=== PATIENT | male | born 1960 | race Hispanic/Latino ===

== ENCOUNTER 2022-07-15 09:22 | Emergency (ER) | payer OTHER ==
[~2022-07-15] VITALS: Ht 170.2 cm; Wt 100.2 kg
[2022-07-15 10:03] LABS: BASOPHILS % (AUTO) 0.2 % (0.0-5.0); EOSINOPHILS % (AUTO) 1.7 % (0.0-8.0); HEMATOCRIT 41.8 % (42-54); LYMPHOCYTES % (AUTO) 20.8 % (21.0-51.0); MEAN CORPUSCULAR HEMOGLOBIN 28.5 pg (27.0-33.0); MEAN CORPUSCULAR HGB CONC 33.7 g/dL (32.0-36.0); MEAN CORPUSCULAR VOLUME 84.6 fL (79-99); NEUTROPHILS % (AUTO) 71.9 % (40.0-77.0); PLATELET COUNT (AUTO) 254 K/uL (130-400); RED BLOOD CELL COUNT(AUTO) 4.94 MIL/uL (4.50-6.20); RED CELL DISTRIBUTION WIDTH 12.2 % (11.0-15.5); WHITE BLOOD COUNT (AUTO) 8.2 K/uL (4.8-10.8)
[2022-07-15 10:09] LABS: APPEARANCE,URINE CLEAR (CLEAR); BILIRUBIN,URINE NEGATIVE (NEGATIVE); COLOR,URINE LIGHT-YELLOW (YELLOW); GLUCOSE, URINE (UA) NEGATIVE (NEGATIVE); KETONES,URINE NEGATIVE (NEGATIVE); LEUKOCYTE ESTERASE ,URINE NEGATIVE Leu/uL (NEGATIVE); NITRATE,URINE NEGATIVE (NEGATIVE); OCCULT BLOOD,URINE NEGATIVE (NEGATIVE); PROTEIN,URINE NEGATIVE (NEGATIVE); UROBILINOGEN,URINE 0.2 mg/dL (0.2-1.0)
[2022-07-15 10:12] LABS: CREATININE 1.1 mg/dL (0.5-1.5); POTASSIUM 3.7 mmol/L (3.5-5.1)
[2022-07-15 10:17] LABS: MAGNESIUM 1.9 mg/dL (1.80-2.40); TOTAL PROTEIN, SERUM 7.5 g/dL (6.0-8.3)
[2022-07-15 10:22] VITALS: BP 115/73
[2022-07-15] MEDS ORDERED: DEXAMETHASONE SOD PHOSPHATE 4 MG/ML 1ML VIAL IVP ONE (11:00)
[2022-07-15] MEDS ORDERED: MECLIZINE HCL 25 MG TABLET PO ONE (11:00)
[2022-07-15] MEDS ORDERED: 0.9%NACL 1000ML 1,000 ML IV ONE (11:00)
[2022-07-15] MEDS ORDERED: MECL-160 PO (12:23)
== END 2022-07-15 12:47 | disposition home or self-care (01) ==
LOC: EDH 09:22
DX: H81.10 Benign paroxysmal vertigo, unspecified ear (principal); E86.0 Dehydration; I10 Essential (primary) hypertension; Z88.6 Allergy status to analgesic agent
CPT/HCPCS: 99285; 96374; 71045; 96361; 83735; 80053; 85025; 81003; 36415; 93005; J1100; J7030

== ENCOUNTER 2024-09-17 07:10 | Emergency (ER) | payer SELFPAY ==
[~2024-09-17] VITALS: Ht 170.2 cm; Wt 104.3 kg
[~2024-09-17 07:10] MED LIST: MECL-302 PO
--- NOTE | 2024-09-17 07:27 | NUR ---
BLADDER SCAN >500CC
[2024-09-17] MEDS ORDERED: TAMS-1 PO (07:51)
--- NOTE | 2024-09-17 07:51 | ERN ---
General Chief Complaint: Urinary Retention Stated Complaint: URINARY RETENTION Time Seen by MD: 07:14 History of Present Illness Initial Comments 3-year-old male presents for urinary retention beginning approximately 9 hours prior to arrival. Last urination was 10:00 p.m. on 09/16/2024. Reports suprapubic distention in the feeling of needing to urinate. He denies any complications with his prostate. He reports that he usually urinates 2 times per night. Yesterday he took in [place] 0 to see if that would help him urinate. He denies any fevers, flank pain, suprapubic pain, dysuria, hematuria. Denies any headache or vision changes. He does report that he recently took [id number] cough and cold medications. Denies any other medication use other than his normal blood pressure medicines and diuretics. Medical history: Hypertension Allergies: Coded Allergies: aspirin (Unverified Allergy, Unknown, 07/15/22) Home Meds Active Scripts Tamsulosin HCl (Flomax) 0.4 Mg Cap.er.24h, 1 CAP PO DAILY for 30 Days, #30 CAP 0 Refills Prov:JOSSELIN PIERRE DO 09/17/24 Meclizine HCl (Meclizine HCl) 25 Mg Tablet, 25 MG PO TID PRN for VERTIGO, #15 TAB 0 Refills Prov:CHAGO PAREDES MD 07/15/22 Past Medical History Past Medical History: Hypertension Past Surgical History: Other ROS Dictation CONSTITUTIONAL: No chills, no fever, no weakness, no diaphoresis, no malaise. HEAD/FACE: No signs of trauma. EENT: No eye pain, no blurred vision, no tearing, no double vision, no ear pain, no ear discharge, no nose pain, no nasal congestion, no throat pain, no throat swelling, no mouth pain. RESPIRATORY: No cough, no orthopnea, no SOB, no stridor, no wheezing. CARDIOVASCULAR: No chest pain, no edema, no palpitations, no syncope. GASTROINTESTINAL/ABDOMINAL: No abdominal pain, no constipation, no diarrhea, no nausea, no vomiting. GENITOURINARY: URIINARY RETENTION No abnormal discharge, no dysuria, no frequent urination, no hematuria. No complaints of pain in the genitals. MUSCULOSKELETAL: No back pain, no gout, no joint pain, no joint swelling, no muscle pain, no muscle stiffness, no neck pain. INTEGUMENTARY: No change in color, no change in hair/nails, no dryness, no lesion, no lumps, no rash. NEUROLOGICAL/PSYCH: No anxiety, not depressed, no emotional problem, no headach e, no numbness, no pre-existing deficit, no history of seizures, no tremors, no weakness. HEMATOLOGIC/LYMPHATIC: Not anemic, no history of blood clots, no apparent bleeding, no bruising, glands not swollen. All Systems Negative, Except as Noted. Physical Exam Physical Exam Dictation VITAL SIGNS: Reviewed. GENERAL APPEARANCE: Alert, oriented x3, mild distress due to urinary retention HEAD AND FACE: Non-traumatic. EYES: PERRL, pink conjunctivas, eyelid no trauma, anterior chamber clear. EARS: Pinnas intact and no signs of trauma or erythema. Ear canals clear and no discharge. TMs no erythema. NOSE: No discharge, no bleeding. OROPHARYNX: Mouth normal, teeth no caries, tongue pink. Pharynx clear, no erythema. Tonsils no exudates, no abscesses noted. Mucous membrane moist. NECK: Supple, non-tender, no thyromegaly, no masses, no JVD, no bruits. BREAST: Deferred. CHEST: No tenderness, no crepitus, no paradoxical movement, no retractions. LUNGS: Clear, well-ventilated, symmetric, no rales, no wheezing, no rhonchi, no stridor, good breath sounds bilaterally. HEART: Regular rate, regular rhythm, no murmur, no gallops. VASCULAR: No peripheral edema. ABDOMEN: Soft, positive bowel sounds, mildly distended suprapubic area RECTAL: Deferred. GENITAL: Deferred. NEUROLOGICAL: Normal speech, gross motor function intact, gross sensory functio n intact. MUSCULOSKELETAL: Neck nontender, full range of motion, back nontender, full range of motion. EXTREMITIES: Nontender, full range of motion. SKIN: Color pink, dry, no turgor, no rash, no lacerations, no abrasions, no contusions. LYMPHATICS: Deferred. Results Laboratory and Microbiology Lab and Micro Result Laboratory Tests Test 09/17/24 07:25 Urine Color DARK-YELLOW (YELLOW) Urine Appearance CLEAR (CLEAR) Urine pH 5.5 (5.0-8.0) Urine Specific [place] 1.029 (1.001-1.031) Urine Protein NEGATIVE mg/dL (NEGATIVE) Urine Glucose (UA) >=1000 mg/dL (NEGATIVE) H Urine Ketones NEGATIVE mg/dL (NEGATIVE) Urine Occult Blood LARGE (NEGATIVE) H Urine Nitrate NEGATIVE (NEGATIVE) Urine Bilirubin NEGATIVE mg/dL (NEGATIVE) Urine Urobilinogen 0.2 mg/dL (0.2-1.0) Urine Leukocyte Esterase NEGATIVE Leo/uL Urine RBC TNTC /HPF (0-1) H Urine WBC 2-5 /HPF (0-1) H Urine Squamous Epithelial Cells RARE /HPF (0-2) Urine Bacteria RARE /HPF (None Seen) MDM CC: For urinary retention Historian: Patient Comorbidities: Hypertension Limitations by social determinants of health: None Differential diagnosis: UTI, BPH, neurologic retention, medication retention Vital signs: Stable Patient came in and moderate to severe distress due to urinary retention. A March was placed without complication by the RN. Patient drained about 800 mL of orange urine. Urinalysis shows blood and glucose otherwise unremarkable. Unclear of the cause. We will recommend that the patient keeps in the March and follows up as an outpatient. We will start tamsulosin and antibiotics. ED Course Orders Procedure Category Date Status Time Nurse Driven March TARA 09/17/24 In Process Removal Pro 07:23 Urinalysis Profile LAB 09/17/24 Complete 07:26 Vital Signs Date Time Temp Pulse Resp B/P (MAP) Pulse Ox O2 Delivery O2 Flow Rate FiO2 09/17/24 07:20 97.9 104 20 155/109 99 Room Air 0 DX & DISP Disposition: Discharge Departure Impression: Primary Impression: Urinary retention Condition: Stable Scripts Meloxicam (Meloxicam) 15 Mg Tablet 1 TAB PO DAILY for 10 Days, #10 TAB 0 Refills Prov: JOSSELIN PIERRE DO 09/17/24 Cefpodoxime Proxetil (Cefpodoxime Proxetil) 200 Mg Tablet 200 MG PO BID for 10 Days, #20 TAB Prov: JOSSELIN PIERRE DO 09/17/24 Tamsulosin HCl (Flomax) 0.4 Mg Cap.er.24h 1 CAP PO DAILY for 30 Days, #30 CAP 0 Refills Prov: JOSSELIN PIERRE DO 09/17/24 Additional Instructions: You have urinary retention. As we discussed, there are many causes of urinary retention. You will need to follow up with your primary doctor or a urologist. I have prescribed cefpodoxime, which is an antibiotic. Take the entire course of antibiotics. I have prescribed tamsulosin. This may help if your prostate is causing the problem. Take this nightly for the next month. I have prescribed meloxicam, which is an anti-inflammatory medication. Please take this for the next 10 days. As we discussed, please return to the emergency department if you have any concerns. Otherwise follow up as an outpatient in 1-2 weeks for March removal and further evaluation. Referrals: NONE (PCP) JOSSELIN PIERRE DO Sep 17, 2024 07:51
[2024-09-17 08:10] LABS: APPEARANCE,URINE CLEAR (CLEAR); BILIRUBIN,URINE NEGATIVE (NEGATIVE); COLOR,URINE DARK-YELLOW (YELLOW); GLUCOSE, URINE (UA) >=1000 mg/dL (NEGATIVE); KETONES,URINE NEGATIVE (NEGATIVE); LEUKOCYTE ESTERASE ,URINE NEGATIVE Leu/uL (NEGATIVE); NITRATE,URINE NEGATIVE (NEGATIVE); OCCULT BLOOD,URINE LARGE (NEGATIVE); PH,URINE 5.5 (5.0-8.0); PROTEIN,URINE NEGATIVE (NEGATIVE); UROBILINOGEN,URINE 0.2 mg/dL (0.2-1.0)
[2024-09-17 08:11] LABS: ADD UA MICROSCOPIC YES
[2024-09-17 08:12] LABS: BACTERIA,URINE RARE /HPF (None Seen); MUCUS,URINE RARE LPF (None Seen); RBC,URINE TNTC /HPF (0-1); SQUAMOUS EPITHELIAL CELL,UR RARE /HPF (0-2)
[2024-09-17] MEDS ORDERED: CEFP200T14 PO (08:16)
[2024-09-17] MEDS ORDERED: MELO-108 PO (08:16)
[2024-09-17 09:09] VITALS: BP 121/69; PULSE 76; RESP 16; TEMP 97.8; O2SAT 97
--- NOTE | 2024-09-17 09:15 | NUR ---
GUO BAG CONVERTED TO LEG BAG, PT INSTRUCTED ON USE AND VERBALIZED FULL UNDERSTANDING
[2024-09-20] MEDS ORDERED: PHEN-847 PO (17:20)
[2024-09-20] MEDS ORDERED: AMOX1TAB16 PO (17:20)
== END 2024-09-17 09:25 | disposition home or self-care (01) ==
LOC: EDH 07:10
DX: R33.9 Retention of urine, unspecified (principal); I10 Essential (primary) hypertension; Z88.6 Allergy status to analgesic agent; Z79.899 Other long term (current) drug therapy; Z98.890 Other specified postprocedural states
CPT/HCPCS: 51702; 81001; 99284

== ENCOUNTER 2024-11-08 10:01 | Emergency (ER) | payer SELFPAY ==
[~2024-11-08] VITALS: Ht 170.2 cm; Wt 99.8 kg
[~2024-11-08 10:01] MED LIST changes: +AMOX1TAB16 PO; +CEFP200T14 PO; +MELO-108 PO; +PHEN-847 PO; +TAMS-1 PO
[2024-11-08 10:35] LABS: HEMATOCRIT 43.7 % (42-54); MEAN CORPUSCULAR HGB CONC 33.6 g/dL (32.0-36.0); MEAN CORPUSCULAR VOLUME 86.2 fL (79-99); RED BLOOD CELL COUNT(AUTO) 5.07 MIL/uL (4.50-6.20); RED CELL DISTRIBUTION WIDTH 11.9 % (11.0-15.5); WHITE BLOOD COUNT (AUTO) 8.8 K/uL (4.8-10.8)
[2024-11-08 10:37] LABS: APPEARANCE,URINE CLEAR (CLEAR); BILIRUBIN,URINE NEGATIVE (NEGATIVE); COLOR,URINE LIGHT-YELLOW (YELLOW); GLUCOSE, URINE (UA) NEGATIVE (NEGATIVE); KETONES,URINE NEGATIVE (NEGATIVE); LEUKOCYTE ESTERASE ,URINE NEGATIVE Leu/uL (NEGATIVE); NITRATE,URINE NEGATIVE (NEGATIVE); OCCULT BLOOD,URINE NEGATIVE (NEGATIVE); PROTEIN,URINE NEGATIVE (NEGATIVE); UROBILINOGEN,URINE 0.2 mg/dL (0.2-1.0)
[2024-11-08 10:45] LABS: CREATININE 1.1 mg/dL (0.5-1.3)
[2024-11-08 10:51] LABS: BILIRUBIN,DIRECT 0.1 mg/dL (0.0-0.3); BILIRUBIN,TOTAL 0.6 mg/dL (0.2-1.0); TOTAL PROTEIN, SERUM 7.8 g/dL (6.0-8.3)
[2024-11-08 10:57] LABS: ADD UA MICROSCOPIC NO
--- NOTE | 2024-11-08 11:15 | ERN ---
ED Note History of Present Illness Stated Complaint: ABDOMINAL PAIN Chief Complaint: Abdominal Pain Time Seen by MD: 11:04 Dictation: PATIENT IS A 64-YEAR-OLD MALE THAT LIVES IN [facility] COMING IN TODAY WITH COMPLAINTS OF HAVING SUPRAPUBIC TENDERNESS AND NOT FEELING GOOD. HE STATES HE HE COMES AND GOES BETWEEN HERE AND [facility] TO SEE HIS GRANDSON IN [facility]. STATES [place] TIME [place] [facility] [place] GUO CATHETER PLACED AND THEN WHEN HE WENT BACK HOME TO [place] IT WAS REMOVED BY HIS PRIMARY CARE DOCTOR. HE WAS SENT TO A UROLOGIST IN [facility], WAS TOLD HIS PSA WAS 10 HOWEVER WHO HAS PROSTATE WAS NORMAL. HE STATES HE DROVE BACK DOWN TO [place] TODAY AND STATES HE DOES NOT FEEL GOOD AND THAT HE IS HAVING SOME SUPRAPUBIC PAIN. STATES HE JUST WENT TO THE [facility] AND EMPTIED HIS BLADDER. Allergies: Coded Allergies: aspirin (Unverified Allergy, Unknown, 07/15/22) Home Meds Active Scripts Ciprofloxacin HCl (Cipro) 500 Mg Tablet, 1 TAB PO BID for 10 Days, #20 TAB 0 Refills Prov:MORA FAJARDO NP 11/08/24 Phenazopyridine HCl (Pyridium) 200 Mg Tab, 200 MG PO TIDPC for 3 Days, #9 TAB TAKE WITH FOOD TO PREVENT STOMACH UPSET. Prov:MORA FAJARDO NP 09/20/24 Amoxicillin/Potassium Clav (Amox Tr-K Clv 875-125 mg Tab) 875 Mg-125 Mg Tablet, 1 EACH PO BID for 7 Days, #14 TAB 0 Refills Prov:MORA FAJARDO NP 09/20/24 Meloxicam (Meloxicam) 15 Mg Tablet, 1 TAB PO DAILY for 10 Days, #10 TAB 0 Refills Prov:JOSSELIN PIERRE DO 09/17/24 Cefpodoxime Proxetil (Cefpodoxime Proxetil) 200 Mg Tablet, 200 MG PO BID for 10 Days, #20 TAB Prov:JOSSELIN PIERRE DO 09/17/24 Tamsulosin HCl (Flomax) 0.4 Mg Cap.er.24h, 1 CAP PO DAILY for 30 Days, #30 CAP 0 Refills Prov:JOSSELIN PIERRE DO 09/17/24 Meclizine HCl (Meclizine HCl) 25 Mg Tablet, 25 MG PO TID PRN for VERTIGO, #15 TAB 0 Refills Prov:CHAGO PAREDES MD 07/15/22 Past Medical History Past Medical History: Hypertension Surgical History: None RN Note Reviewed/Agreed w/PFSH: Yes Review of System Dictation CONSTITUTIONAL: Negative except for HPI HEAD/FACE: Negative except for HPI EENT: Negative except for HPI RESPIRATORY: Negative except for HPI GASTROINTESTINAL/ABDOMINAL: Negative except for HPI GENITOURINARY: Negative except for HPI mild suprapubic tenderness MUSCULOSKELETAL: Negative except for HPI INTEGUMENTARY: Negative except for HPI NEUROLOGICAL/PSYCH: Negative except for HPI HEMATOLOGIC/LYMPHATIC: Negative except for HPI All Systems Negative, Except as noted above. 13 point review of systems assessed and all negative except for above. Initial Vital Sign VS Vital Signs Date Time Temp Pulse Resp B/P (MAP) Pulse Ox O2 Delivery O2 Flow Rate FiO2 11/08/24 10:02 97.7 86 18 129/75 98 Room Air 11/08/24 11:41 0 21 Physical Exam Dictation Vital Signs reviewed General Appearance: Alert, oriented x 3, no acute distress, well developed, nourished. Head and Face: non-traumatic. Eyes: PERRL, pink conjunctivas, eyelid no trauma, anterior chamber with arcus senilis. Ears: Pinnas intact and no signs of trauma or erythema ear canals clear and no discharge TM no erythema Nose: No discharge, no bleeding. Oropharynx: Mouth normal, tongue pink, pharynx clear,no erythema, tonsils no exudates, no abscesses noted, mucous membrane moist Neck: Supple, non-tender, no thyromegaly, no masses, no JVD, no bruits Breast:Deferred Chest:No tenderness, no crepitus, no paradoxical movement, no retractions Lungs:Clear, well-ventilated, symmetric, no rales, no wheezing, no rhonchi, no stridor, good breath sounds bilaterally Heart: Regular rate, regular rhythm, no murmur, no gallops Vascular: no peripheral edema, Abdomen: Soft, positive bowel sounds, nondistended, no guarding, nontender, no rebound, no masses no hepatomegaly, no splenomegaly, no Whitmore's sign, no hernias. Mild suprapubic tenderness Rectal: Deferred Genital: Deferred Neurological: Normal speech, motor function intact, sensory function intact Musculoskeletal: Neck nontender, full range of motion, back nontender, full range of motion, Extremities: nontender, full range of motion Skin: Color pink, dry, no turgor, no rash, no lacerations, no abrasions, no contusions. Lymphatic: Deferred Results (Laboratory/Radiology) Laboratory/Radiology Laboratory Tests Test 11/08/24 10:20 11/08/24 10:26 Urine Color LIGHT-YELLOW (YELLOW) Urine Appearance CLEAR (CLEAR) Urine pH 6.0 (5.0-8.0) Urine Specific [place] 1.017 (1.001-1.031) Urine Protein NEGATIVE mg/dL (NEGATIVE) Urine Glucose (UA) NEGATIVE mg/dL (NEGATIVE) Urine Ketones NEGATIVE mg/dL (NEGATIVE) Urine Occult Blood NEGATIVE (NEGATIVE) Urine Nitrate NEGATIVE (NEGATIVE) Urine Bilirubin NEGATIVE mg/dL (NEGATIVE) Urine Urobilinogen 0.2 mg/dL (0.2-1.0) Urine Leukocyte Esterase NEGATIVE Leo/uL White Blood Count 8.8 K/uL (4.8-10.8) Red Blood Count 5.07 MIL/uL (4.50-6.20) Hemoglobin 14.7 g/dL (14.0-18.0) Hematocrit 43.7 % (42-54) Mean Corpuscular Volume 86.2 fL (79-99) Mean Corpuscular Hemoglobin 29.0 pg (27.0-33.0) Mean Corpuscular Hemoglobin Concent 33.6 g/dL (32.0-36.0) Red Cell Distribution Width 11.9 % (11.0-15.5) Platelet Count 274 K/uL (130-400) Mean Platelet Volume 10.2 fL (7.5-10.5) Nucleated Red Blood Cells 0.0 % (0.0-0.19) Sodium Level 139 mmol/L (136-145) Potassium Level 3.0 mmol/L (3.5-5.1) *L Chloride Level 101 mmol/L (101-111) Carbon Dioxide Level 31 mmol/L (21-32) Blood Urea Nitrogen 16 mg/dL (7-18) Creatinine 1.1 mg/dL (0.5-1.3) Glomerular Filtration Rate Calc 75 mL/min (>90) Random Glucose 155 mg/dL (70-105) H Lactic Acid Level 2.4 mmol/L (0.8-2.5) Total Calcium 9.7 mg/dL (8.5-10.1) Total Bilirubin 0.6 mg/dL (0.2-1.0) Direct Bilirubin 0.1 mg/dL (0.0-0.3) Aspartate Amino Transf (AST/SGOT) 21 U/L (10-37) Alanine Aminotransferase (ALT/SGPT) 48 U/L (12-78) Alkaline Phosphatase 80 U/L (50-136) Total Protein 7.8 g/dL (6.0-8.3) Albumin 4.0 g/dL (3.5-5.0) Lipase 44 U/L (16-77) CT ABDOMEN/PELVIS W/CONTRAST HISTORY: Lower abdominal pain COMPARISON: None TECHNIQUE: Multiple sequential axial images of the abdomen and pelvis were obtained from the dome of the diaphragm through symphysis pubis. Patient was given 75 cc of Omnipaque through intravenous route. Oral contrast was not given. FINDINGS: No pleural effusion is seen bilaterally. There is no evidence of parenchymal disease or pulmonary nodule of the visualized lower lungs. Degenerative changes of the thoracolumbar spine are present. The heart is not enlarged. Gallstones are seen in the gallbladder. Liver is enlarged measuring 18 cm. The liver, spleen, adrenal glands and pancreas are unremarkable. There is no evidence of hydronephrosis bilaterally. There are multiple left renal cysts with the largest measuring 4 cm. No evidence of renal stone is seen. Fecal material is seen in the colon. There are normal size retroperitoneal and mesenteric lymph nodes. No ascites is seen. Atherosclerotic changes are present. Pelvic sidewalls are symmetric bilaterally. Bladder is poorly distended with bladder stone. Bladder wall measures 13 mm. Prostate gland is enlarged measuring 7.2 x 7.8 cm. IMPRESSION: 1. Diverticulosis. Fecal material in the colon. Gallstones in the gallbladder. Left renal cysts. Enlarged prostate. Labs Reviewed?: Yes ED Course ED Course Orders Procedure Category Date Status Time Cbc Without LAB 11/08/24 Complete Differential 10:14 Basic Metabolic Panel LAB 11/08/24 Complete 10:14 Urinalysis Profile LAB 11/08/24 Complete 10:14 Hepatic Function Panel LAB 11/08/24 Complete 10:19 Lipase LAB 11/08/24 Complete 10:19 Lactic Acid LAB 11/08/24 Complete 10:19 Ct Abdomen/Pelvis CT 11/08/24 Resulted W/Contrast 10:19 Potassium Bicarb/Cit PHA 11/08/24 Complete Ac 25meq (K-Lyte Ta 11:30 Bladder Scan CPOE 11/08/24 Transmitted 11:31 Iohexol (Omnipaque) PHA 11/08/24 Complete 12:01 Ketorolac 60mg/2ml PHA 11/08/24 Complete (Toradol 60mg/2ml) 13:00 Current Medications Medications (Trade) Dose Ordered Sig/Deuce Route PRN Reason Start Time Stop Time Status Last Admin Dose Admin Iohexol (Omnipaque) 75 ml STK-MED ONCE IV 11/08/24 12:01 11/08/24 12:02 DC Ketorolac Tromethamine (toRADol 60MG/ 2ML) 60 mg ONCE ONCE IM 11/08/24 13:00 11/08/24 13:01 DC 11/08/24 12:57 Potassium Bicarbonate (K-Lyte Tablet Eff 25 Meq Tablet.eff) 25 meq ONCE ONCE PO 11/08/24 11:30 11/08/24 11:31 DC 11/08/24 12:38 Vital Signs Date Time Temp Pulse Resp B/P (MAP) Pulse Ox O2 Delivery O2 Flow Rate FiO2 11/08/24 12:52 98.2 76 16 118/75 98 Room Air* 0 21 11/08/24 11:41 98.2 79 16 120/75 100 Room Air* 0 21 11/08/24 10:02 97.7 86 18 129/75 98 Room Air 1200/patient had spontaneous void of 200 cc. Postvoid residual 49 cc 235 PATIENT WE WILL BE DISCHARGED HOME WITH BENIGN PROSTATE HYPERTROPHY. HE IS ALREADY ON TAMSULOSIN. NO INFECTIONS AT THIS TIME PATIENT HAS LACTIC ACID OF 2.4 HOWEVER LABS ARE COMPLETELY NORMAL HE HAS NO LEUKOCYTOSIS AND HEMODYNAM ICALLY STABLE AFEBRILE. PATIENT WILL BE TOLD TO FOLLOW UP WITH HIS DOCTOR IN [facility] IN THE NEXT 1-2 DAYS AND CONTINUE ALL MEDICATIONS. Medical Decision Making MDM MDM: DIFFERENTIAL DIAGNOSIS: APPENDICITIS/DIVERTICULITIS/UTI/PROSTATITIS/ELECTROLYTE IMBALANCE/DEHYDRATION/URINARY RETENTION RATIONALE: TESTS CONSIDERED AND ORDERED SECONDARY TO SHARED DECISION MAKING INCLUDE: LABS/RADIOLOGY PREVIOUS OUTSIDE RECORDS REVIEWED: OLD ER VISITS. RISK OF COMPLICATION AND/OR MORBIDITY OR MORTALITY OF PATIENT MANAGEMENT: NONE MEDICATIONS-PER MEDICATION RECONCILIATION NEED FOR HOSPITALIZATION: PATIENT DOES NOT MEET CRITERIA FOR HOSPITALIZATION. NO NEED FOR EMERGENCY MAJOR/MINOR SURGERY: NO THERE ARE NO SOCIAL CONCERNS WITH THIS PATIENT. PRESCRIPTION DRUG MANAGEMENT CIPRO PRESCRIPTIONS WILL INCLUDE SYMPTOMATIC CARE PATIENT'S PRIOR EXTERNAL MEDICAL RECORDS FROM OTHER ER VISITS WERE REVIEWED BY ME INDICATED. PRIOR TESTING AND RESULTS FROM PREVIOUS VISITS WERE REVIEWED. PRIOR TESTS WERE TAKEN INTO ACCOUNT WITH MEDICAL DECISION MAKING AND RESOURCE UTILIZATION, INDEPENDENT HISTORIAN/HISTORIANS WERE USED TO OBTAIN COMPLETE MEDICAL HISTORY. I INDEPENDENTLY INTERPRETED THE TEST THAT WERE PERFORMED, RESULTS WERE REVIEWED BY ME AND CONSIDERED FINDINGS ON RADIOLOGY IF ORDERED. MEDICAL MANAGEMENT AND EXAMINATION INTERPRETATION DISCUSSIONS WERE HAD BY ME WITH OTHER QUALIFIED HEALTHCARE PROFESSIONALS INDICATED FOR THE PATIENT'S CARE. DX & DISP Disposition: Discharge Departure Impression: Primary Impression: BPH without obstruction/lower urinary tract symptoms Additional Impressions: Constipation, Hypokalemia Condition: Stable Scripts Ciprofloxacin HCl (Cipro) 500 Mg Tablet 1 TAB PO BID for 10 Days, #20 TAB 0 Refills Prov: MORA FAJARDO PRODUCT ASSURANCE ENGINEER 11/08/24 Additional Instructions: FOLLOW-UP WITH PRIMARY CARE PROVIDER IN 1 TO 2 DAYS. TAKE MEDICATIONS DIRECTED HERE IN THE EMERGENCY ROOM. OKAY TO CONTINUE HOME MEDICATIONS UNLESS OTHERWISE DISCUSSED DURING YOUR VISIT IN THE EMERGENCY ROOM TODAY. RETURN TO YOUR NEAREST EMERGENCY ROOM IF SYMPTOMS WORSEN OR IF THERE IS NO IMPROVEMENT. CALL 911 IF YOU NEED IMMEDIATE ASSISTANCE. TAKE TYLENOL OR MOTRIN [id number] NEEDED AND IF NO CONTRAINDICATIONS ARE PRESENT. INCREASE ORAL HYDRATION. A WOUND CULTURE OR URINE CULTURE WAS ORDERED HERE IN THE EMERGE NCY ROOM DEPARTMENT PLEASE FOLLOW-UP WITH PRIMARY CARE PROVIDER AND ADVISE THEM TO GET REPEAT PORTS FROM OUR FACILITY. IF YOU HAD ANY FRED WRAP/SPLINTS THAT WERE APPLIED HERE, PLEASE DO NOT REMOVE THEM UNTIL YOU SEE YOUR PRIMARY CARE OR SPECIALTY. SUGGEST MILK OF MAGNESIA/[id number] 60 ML AT BEDTIME WITH WATER. CONTINUE FLOMAX FROM YOUR UROLOGIST IN [facility] AND SEE HIM IN THE NEXT 2-3 DAYS. ALSO CONTINUE DICYCLOMINE FROM YOUR DOCTOR IN [facility]. Referrals: SELF,REFERRAL (PCP) Time of Disposition: 12:37 I have reviewed the case, and I agree with, Diagnosis and Plan I performed a substantive portion of the visit. I have reviewed and personally made and approve the management plan that is documented in the notes by myself with AYAD/resident. I acknowledged full responsibility for the patient's management plan. MORA FAJARDO NP Nov 08, 2024 11:15 JOSSELIN PIERRE DO Nov 09, 2024 05:47
[2024-11-08] MEDS ORDERED: IOHEXOL-350 75 ML VIAL IV ONE (12:01)
--- NOTE | 2024-11-08 12:06 | NUR ---
BLADDER SCAN 49MLS POST VOID OF 200MMLS OF URINE. MORA GRIFFITHS MADE AWARE
--- NOTE | 2024-11-08 12:29 | HMCIMG ---
CT ABDOMEN/PELVIS W/CONTRAST HISTORY: Lower abdominal pain COMPARISON: None TECHNIQUE: Multiple sequential axial images of the abdomen and pelvis were obtained from the dome of the diaphragm through symphysis pubis. Patient was given 75 cc of Omnipaque through intravenous route. Oral contrast was not given. FINDINGS: No pleural effusion is seen bilaterally. There is no evidence of parenchymal disease or pulmonary nodule of the visualized lower lungs. Degenerative changes of the thoracolumbar spine are present. The heart is not enlarged. Gallstones are seen in the gallbladder. Liver is enlarged measuring 18 cm. The liver, spleen, adrenal glands and pancreas are unremarkable. There is no evidence of hydronephrosis bilaterally. There are multiple left renal cysts with the largest measuring 4 cm. No evidence of renal stone is seen. Fecal material is seen in the colon. There are normal size retroperitoneal and mesenteric lymph nodes. No ascites is seen. Atherosclerotic changes are present. Pelvic sidewalls are symmetric bilaterally. Bladder is poorly distended with bladder stone. Bladder wall measures 13 mm. Prostate gland is enlarged measuring 7.2 x 7.8 cm. IMPRESSION: 1. Diverticulosis. Fecal material in the colon. Gallstones in the gallbladder. Left renal cysts. Enlarged prostate. CT was performed with one or more following dose reduction techniques: automated exposure control, adjustment of the mA and kv according to patient's size, or use of a iterative reconstruction technique.
[2024-11-08] MEDS ORDERED: CIPR-278 PO (12:37)
[2024-11-08] MEDS: PoTASSium BIcarbonate/CIT AC 25 MEQ TABLET.EFF PO ONE (12:38)
[2024-11-08 12:52] VITALS: BP 118/75; PULSE 76; RESP 16; TEMP 98.3; O2SAT 98
[2024-11-08] MEDS: ketOROlac 60 MG VIAL (30MG/ML) IM ONE (12:57)
== END 2024-11-08 13:08 | disposition home or self-care (01) ==
LOC: EDH 10:01
DX: N40.0 Benign prostatic hyperplasia without lower urinary tract symptoms (principal); K59.00 Constipation, unspecified; E87.6 Hypokalemia; K80.20 Calculus of gallbladder without cholecystitis without obstruction; I10 Essential (primary) hypertension; Z79.1 Long term (current) use of non-steroidal anti-inflammatories (NSAID); Z88.6 Allergy status to analgesic agent
CPT/HCPCS: 99285; 74177; 51798; 80076; 80048; 83690; 85027; 83605; 81003; 36415; 96372; J1885; Q9967